=== PATIENT | female | born 1945 | race Caucasian/White ===

== ENCOUNTER 2019-10-16 07:39 | Emergency (ER) | payer BC, OTHER ==
--- NOTE | 2019-10-16 07:51 | PDOC ---
History of Present Illness - General Chief Complaint: Urinary Problem Stated Complaint: R/O UTI Time Seen by Provider: 10/16/19 07:49 History Source: Patient Exam Limitations: No Limitations Past History - Travel Traveled outside of the country in the last 30 days: No Close contact w/someone who was outside of country & ill: No - Past Medical History Allergies/Adverse Reactions: Allergies Allergy/AdvReac Type Severity Reaction Status Date / Time No Known Allergies Allergy Verified 10/16/19 07:51 Home Medications: Ambulatory Orders Amlodipine Besylate [Norvasc -] 10 mg PO DAILY 07/25/16 Sulfamethoxazole/Trimethoprim [Bactrim *Ds*] 1 each PO BID #10 tablet 07/25/16 Cephalexin Monohydrate [Keflex -] 500 mg PO BID #14 capsule 10/16/19 Phenazopyridine HCl [Pyridium -] 100 mg PO TID #9 tablet 10/16/19 HTN: Yes - Psycho Social/Smoking Cessation Hx Smoking History: Never smoked Review of Systems - Review of Systems Able to Perform ROS?: Yes Comments:: 10/16/19 07:50 CONSTITUTIONAL: Absent: fever, chills, diaphoresis, generalized weakness, malaise, loss of appetite HEENT: Absent: rhinorrhea, nasal congestion, throat pain, throat swelling, difficulty swallowing, mouth swelling, ear pain, eye pain, visual Changes CARDIOVASCULAR: Absent: chest pain, loss of consciousness, palpitations, irregular heart rate, peripheral edema RESPIRATORY: Absent: cough, shortness of breath, dyspnea with exertion, orthopnea, wheezing, stridor, hemoptysis GASTROINTESTINAL: Present: abdominal pain, nausea Absent: abdominal distension, nausea, vomiting, diarrhea, constipation, melena, hematochezia GENITOURINARY: Present: frequency, urgency Absent: dysuria, hesitancy, hematuria, flank pain, genital pain MUSCULOSKELETAL: Absent: myalgia, arthralgia, joint swelling SKIN: Absent: rash, itching, pallor NEUROLOGIC: Absent: headache, focal weakness or paresthesias, dizziness, unsteady gait, seizure, mental status changes, bladder or bowel incontinence PSYCHIATRIC: Absent: anxiety, depression, suicidal or homicidal ideation, hallucinations. Is the patient limited [place]an proficient: No *Physical Exam - Physical Exam 10/16/19 07:51 GENERAL: Well developed, well nourished. Awake and alert. No acute distress. HEENT: Normocephalic, atraumatic. PERRLA, EOMI. No conjunctival pallor. Sclera are non- icteric. Moist mucous membranes. Oropharynx is clear. NECK: Supple. Full ROM. No JVD. Carotid pulses 2+ and symmetric, without bruits. No thyromegaly. No lymphadenopathy. CARDIOVASCULAR: Regular rate and rhythm. No murmurs, rubs, or gallops. Distal pulses are 2+ and symmetric. PULMONARY: No evidence of respiratory distress. Lungs clear to auscultation bilaterally. No wheezing, rales or rhonchi. ABDOMINAL: TTP of the suprapubic region/RLQSoft. Non-distended. No rebound or guarding. No organomegaly. Normoactive bowel sounds. MUSCULOSKELETAL Normal range of motion at all joints. No bony deformities or tenderness. No CVA tenderness. EXTREMITIES: No cyanosis. No clubbing. No edema. No calf tenderness. SKIN: Warm and dry. Normal capillary refill. No rashes. No jaundice. NEUROLOGICAL: Alert, awake, appropriate. Cranial nerves 2-12 intact. No deficits to light touch and temperature in face, upper extremities and lower extremities. No motor deficits in the in face, upper extremities and lower extremities. Normoreflexic in the upper and lower extremities. Normal speech. Toes are down- going bilaterally. Gait is normal without ataxia. PSYCHIATRIC: Cooperative. Good eye contact. Appropriate mood and affect. ED Treatment Course - LABORATORY CBC & Chemistry Diagram: 10/16/19 08:17 10/16/19 08:17 Medical Decision Making - Medical Decision Making 10/16/19 07:58 The patient is a 74-year-old female with past medical history of a prolapsed bladder, HTN who presents to the ER for abdominal pain, frequency, urgency starting this morning. She states that the pain is sharp and stabbing and she notes that the pain is over her bladder. Taking Aleve just prior to arrival with no relief of her symptoms. She states that this feels like her previous UTIs however the pain is worse. She does admit to some associated nausea. Denies fevers, chills, vomiting, back pain, hematuria. Pt reports she just finished a Z-pack for upper respiratory like symptoms. A/P: Urinary symptoms. On exam patient with suprapubic tenderness as well as right lower quadrant tenderness. Likely urinary infection given most of the pain is over the suprapubic region, however given that patient does have some right lower quadrant tenderness will obtain basic labs. Urine, CBC, CMP, IV fluids, Zofran and IV Tylenol ordered Reevaluate 10/16/19 11:34 Trace blood was noted on the UA, otherwise the UA was unremarkable. Patient sent to CT renal to rule out stones. CT scan as read by radiology notes of a large left renal cyst with mild to moderate hydronephrosis on both sides. Multiple lesions noted within the base of the lungs consistent with potential metastatic cancer. Patient was made is aware of her results and aware that she needs to follow up this week. Copy of the report was given to her. Spoke with patient's primary care doctor Dr. Almendarez. Made aware of results and patient CT report was faxed over to Dr. Almendarez with patient permission. Likely patient has cystitis. Will treat as an outpatient with Keflex and Pyridium DC home I discussed the physical exam findings, ancillary test results and final diagnoses with the patient. I answered all of the patient's questions. The patient was satisfied with the care received and felt comfortable with the discharge plan and treatment plan. The Patient agrees to follow up with the primary care physician/specialist within 24-72 hours. Return precautions were given. Discharge - Discharge Information Problems reviewed: Yes Clinical Impression/Diagnosis: Urinary tract infection Qualifiers: Urinary tract infection type: acute cystitis Hematuria presence: with hematuria Qualified Code(s): N30.01 - Acute cystitis with hematuria Condition: Stable Disposition: HOME - Admission No - Additional Discharge Information Prescriptions: Cephalexin Monohydrate [Keflex -] 500 mg PO BID #14 capsule Phenazopyridine HCl [Pyridium -] 100 mg PO TID #9 tablet - Follow up/Referral Referrals: Isauro Almendarez MD [Primary Care Provider] - Call tomorrow Amandeep Gonzalez MD [Staff Physician] - Call tomorrow - Patient Discharge Instructions Patient Printed Discharge Instructions: DI for Urinary Tract Infection (UTI) Additional Instructions: You were evaluated for your urinary symptoms today. You most likely have a urinary tract infection which is causing the symptoms. Please take the Keflex as directed for 1 week. Please take the Pyridium 3 times a day with meals to help with the pain. You also have a cyst on your left kidney. Please follow-up with urology. A referral has been provided for you. As discussed there were lesions on your lungs which may be cancerous. You need to follow-up with your primary care doctor this week. He is expecting a phone call from you. Return to the ER for worsening pain, fever, inability to urinate, or if you have any changes in your symptoms. - Post Discharge Activity
[2019-10-16 07:52] VITALS: BP 143/90; PULSE 93; TEMP 98.1; BMI 28.9
[2019-10-16] MEDS ORDERED: SODIUM CHLORIDE 1,000 ML IV STA (07:56)
[2019-10-16] MEDS ORDERED: ACETAMINOPHEN 1000 MG/100 ML VIAL (NON FORMULARY) IVPB ONE (07:56)
[2019-10-16] MEDS ORDERED: ONDANSETRON 4 MG/2 ML VIAL IVPUSH ONE (07:56)
[2019-10-16] MEDS ORDERED: ACETAMINOPHEN INJECTION 100 ML IVPB ONE (08:06)
[2019-10-16] MEDS ORDERED: ONDANSETRON 4 MG/2 ML VIAL ONE (08:06)
[2019-10-16 08:30] LABS: BASO % 0.7 % (0-2.0); EOS % 1.2 % (0-4.5); HEMOGLOBIN 15.2 GM/dL (10.7-15.3); LYMPH % 11.8 % (8-40); MCH 30.7 pg (25.7-33.7); MCHC 34.5 g/dl (32.0-36.0); MEAN CELL VOLUME 88.9 fl (80-96); MEAN PLT VOLUME 8.1 fl (7.5-11.1); MONO % 6.8 % (3.8-10.2); NEUT % 79.5 % (42.8-82.8); PLATELET COUNT 247 K/MM3 (134-434); RBC 4.95 M/mm3 (3.60-5.2); RDW 13.1 % (11.6-15.6); WHITE BLOOD COUNT 9.8 K/mm3 (4.0-10.0)
[2019-10-16 08:58] LABS: ALBUMIN 4.1 g/dl (3.4-5.0); BILIRUBIN,TOTAL 0.5 mg/dL (0.2-1); BLOOD UREA NITROGEN 13.2 mg/dL (7-18); CALCIUM 10.1 mg/dL (8.5-10.1); CREATININE 0.7 mg/dL (0.55-1.3); POTASSIUM 3.9 mmol/L (3.5-5.1); TOT PROT 7.4 g/dl (6.4-8.2)
[2019-10-16] MEDS ORDERED: PHENAZOPYRIDINE HCL 100 MG TABLET (FP) PO ONE (09:05)
[2019-10-16 09:17] LABS: EPI CELLS 0.6 /HPF (0-5/HPF); HYALINE CASTS 0 /lpf (0-8); URINE APPEARANCE CLEAR; URINE BACTERIA 10.3 /hpf (NEGATIVE); URINE BILIRUBIN NEGATIVE (NEGATIVE); URINE COLOR YELLOW; URINE GLUCOSE (UA) NEGATIVE (NEGATIVE); URINE KETONE NEGATIVE (NEGATIVE); URINE LEUK ESTERASE NEGATIVE (NEGATIVE); URINE NITRITE NEGATIVE (NEGATIVE); URINE PROTEIN NEGATIVE (NEGATIVE); URINE RBC 12 /hpf (0-4); URINE UROBILINOGEN 0.2 mg/dL (0.2-1.0); URINE WBC 1 /hpf (0-5)
[2019-10-16] MEDS ORDERED: PHENAZOPYRIDINE HCL 100 MG TABLET (FP) ONE (09:23)
== END 2019-10-16 11:38 | disposition home or self-care (01) ==
LOC: JER 07:39
PROC: 3E033GC Introduction of Other Therapeutic Substance into Peripheral Vein, Percutaneous Approach (ICD-10-PCS; principal; 2019-10-16)
PROC: 3E033NZ Introduction of Analgesics, Hypnotics, Sedatives into Peripheral Vein, Percutaneous Approach (ICD-10-PCS; 2019-10-16)
DX: N30.01 Acute cystitis with hematuria (principal); I10 Essential (primary) hypertension
CPT/HCPCS: 36415; 74176-TC; 80053; 81003; 85025; 87086; 96374; 96375; 99283-25; J0131; J7030

== ENCOUNTER 2022-04-05 10:39 | Emergency (ER) | payer OTHER ==
[2022-04-05 10:48] VITALS: TEMP 97.8; BMI 29.2
[2022-04-05] MEDS ORDERED: IBUPROFEN 400 MG TABLET (FP) PO ONE ×2 (11:12→11:30)
[2022-04-05] MEDS ORDERED: ACETAMINOPHEN 325 MG TABLET (FP) ONE (11:32)
[2022-04-05] MEDS ORDERED: ACETAMINOPHEN 500 MG TABLET (FP) PO ONE (11:33)
[2022-04-05] MEDS ORDERED: AMOX TR/POT CLAV 875MG/125MG TABLETS (FP) PO ONE (11:54)
[2022-04-05] MEDS ORDERED: AMOX TR/POT CLAV 875MG/125MG TABLETS (FP) ONE (12:02)
[2022-04-05 12:19] VITALS: BP 134/62; PULSE 98
== END 2022-04-05 12:31 | disposition home or self-care (01) ==
LOC: JER 10:39
DX: K08.89 Other specified disorders of teeth and supporting structures (principal)
CPT/HCPCS: 93005; 93010; 99283-25

== ENCOUNTER 2022-06-30 11:17 | Emergency (ER) | payer OTHER ==
[2022-06-30 11:19] VITALS: BP 160/77; PULSE 112; RESP 18; TEMP 98.1; BMI 29.2
[2022-06-30 13:20] LABS: URINE APPEARANCE HAZY; URINE BILIRUBIN NEGATIVE (NEGATIVE); URINE COLOR YELLOW; URINE GLUCOSE (UA) NEGATIVE (NEGATIVE)
[2022-06-30 13:21] LABS: PH,URINE 6.5 (5.0-8.0); URINE KETONE NEGATIVE (NEGATIVE); URINE LEUK ESTERASE 3+ (NEGATIVE); URINE NITRITE 1+ (NEGATIVE); URINE PROTEIN TRACE (NEGATIVE)
[2022-06-30 13:22] LABS: URINE BACTERIA FEW /uL (0-1359); URINE RBC FEW /uL (0-23.9); URINE WBC MODERATE /uL (0-25.8)
== END 2022-06-30 13:51 | disposition home or self-care (01) ==
LOC: JERFT 11:17
DX: N39.0 Urinary tract infection, site not specified (principal)
CPT/HCPCS: 81003; 87086; 99283-25

== ENCOUNTER 2023-01-19 08:05 | Emergency (ER) | payer OTHER ==
[2023-01-19 08:20] VITALS: BP 169/72; PULSE 92; RESP 18; TEMP 98.1; BMI 29.2
[2023-01-19] MEDS ORDERED: SULFAMETHOXAZOLE/TRIMETHOPRIM 800MG/160MG D.S. TABLET PO ONE (09:15)
[2023-01-19] MEDS ORDERED: CEPHALEXIN 250 MG/5 ML ORAL SUSPENSION PO ONE (09:15)
[2023-01-19] MEDS ORDERED: CEPHALEXIN MONOHYDRATE 500 MG CAPSULE (UD) ONE (09:25)
[2023-01-19] MEDS ORDERED: SULFAMETHOXAZOLE/TRIMETHOPRIM 800MG/160MG D.S. TABLET ONE (09:25)
== END 2023-01-19 11:54 | disposition home or self-care (01) ==
LOC: JER 08:05
DX: L03.011 Cellulitis of right finger (principal)
CPT/HCPCS: 99283-25

== ENCOUNTER 2023-03-22 10:00 | Emergency (ER) | payer OTHER ==
[2023-03-22 10:10] VITALS: BP 165/83; PULSE 92; RESP 18; TEMP 98; BMI 27.4
[2023-03-22] MEDS ORDERED: LIDOCAINE 5% TOPICAL PATCH TP ONE (11:04)
[2023-03-22] MEDS ORDERED: ACETAMINOPHEN 500 MG TABLET (FP) PO ONE (11:04)
[2023-03-22] MEDS ORDERED: LIDOCAINE 5% TOPICAL PATCH ONE (11:09)
[2023-03-22] MEDS ORDERED: ACETAMINOPHEN 500 MG TABLET (FP) ONE (11:10)
[2023-03-22] MEDS ORDERED: LIDOCAINE PATCH REMOVAL MC SCH (22:00)
== END 2023-03-22 14:18 | disposition home or self-care (01) ==
LOC: JER 10:00 → JERFT 10:00
DX: S09.93XA Unspecified injury of face, initial encounter (principal); M25.561 Pain in right knee; W01.0XXA Fall on same level from slipping, tripping and stumbling without subsequent striking against object, initial encounter
CPT/HCPCS: 70450-TC; 73562-TC-RT-FY; 99284-25

== ENCOUNTER 2023-04-24 09:36 | Emergency (ER) | payer OTHER ==
[2023-04-24 09:55] VITALS: RESP 18; BMI 28.0
[2023-04-24 11:17] LABS: POTASSIUM 4.1 mmol/L (3.5-5.1)
[2023-04-24 11:19] LABS: ALBUMIN 3.8 g/dl (3.4-5.0); BLOOD UREA NITROGEN 16.3 mg/dL (7-18); CALCIUM 9.8 mg/dL (8.5-10.1)
[2023-04-24 11:22] LABS: BASO % 0.7 % (0-2.0); CREATININE 0.8 mg/dL (0.55-1.3); EOS % 0.5 % (0-4.5); HEMATOCRIT 41.3 % (32.4-45.2); HEMOGLOBIN 13.5 GM/dL (10.7-15.3); LYMPH % 14.5 % (8-40); MCHC 32.7 g/dl (32.0-36.0); MEAN CELL VOLUME 91.6 fl (80-96); MEAN PLT VOLUME 8.9 fl (7.5-11.1); MONO % 8.1 % (3.8-10.2); NEUT % 76.2 % (42.8-82.8); PLATELET COUNT 249 10^3/uL (134-434); RBC 4.51 M/mm3 (3.60-5.2); RDW 13.4 % (11.6-15.6); WHITE BLOOD COUNT 11.3 K/mm3 (4.0-10.0)
[2023-04-24 11:24] LABS: BILIRUBIN,TOTAL 0.5 mg/dL (0.2-1); TOT PROT 7.3 g/dl (6.4-8.2)
[2023-04-24 11:41] LABS: ERYTHROCYTE SEDIMENTATION RATE 83 mm/hr (0-30)
[2023-04-24] MEDS ORDERED: AMPICILLIN NA/SULBACTAM NA 1.5 GM in SODIUM CHLORIDE 100 ML IVPB ONE ×2 (14:09→14:20)
[2023-04-24] MEDS ORDERED: VANCOMYCIN 1 GM in D5W (PRE-DOCKED) 1,000 MG/250 ML (RESTRICTED TO ID ONLY IVPB ONE (14:20)
[2023-04-24] MEDS ORDERED: KETOROLAC TROMETHAMINE 15 MG/ML VIAL IVPUSH ONE (14:21)
[2023-04-24] MEDS ORDERED: AMPICILLIN NA/SULBACTAM NA 1.5 GM VIAL ONE (15:10)
[2023-04-24] MEDS ORDERED: KETOROLAC TROMETHAMINE 15 MG/ML VIAL ONE (15:10)
[2023-04-24] MEDS ORDERED: VANCOMYCIN/WATER FOR INJ (PEG) 1,000 MG/200 ML BAG IVPB ONE (15:10)
[2023-04-24] MEDS ORDERED: SODIUM CHLORIDE 0.9% 500 ML INFUS.BAG IV ONE (15:58)
[2023-04-24 19:57] VITALS: BP 140/70; PULSE 76; TEMP 98.6
== END 2023-04-24 21:25 | disposition short-term general hospital (02) ==
LOC: JER 09:36 → JERFT 09:36 → JER 21:25
PROC: 3E03329 Introduction of Other Anti-infective into Peripheral Vein, Percutaneous Approach (ICD-10-PCS; principal; 2023-04-24)
PROC: 3E0333Z Introduction of Anti-inflammatory into Peripheral Vein, Percutaneous Approach (ICD-10-PCS; 2023-04-24)
PROC: 3E03329 Introduction of Other Anti-infective into Peripheral Vein, Percutaneous Approach (ICD-10-PCS; 2023-04-24)
DX: L03.211 Cellulitis of face (principal); L02.01 Cutaneous abscess of face; R22.0 Localized swelling, mass and lump, head
CPT/HCPCS: 36415; 70487-TC; 80053; 85025; 85651; 86140; 87635; 99285-25; Q9967

== ENCOUNTER 2024-03-28 00:36 | Emergency (ER) | payer OTHER ==
[2024-03-28 00:48] VITALS: BMI 28.9
[2024-03-28] MEDS ORDERED: fentaNYL CITRATE 250 MCG/5 ML VIAL ONE (01:00)
[2024-03-28] MEDS ORDERED: ONDANSETRON 4 MG/2 ML VIAL ONE (01:10)
[2024-03-28] MEDS: ONDANSETRON 4 MG/2 ML VIAL IVPB ONE (01:16)
[2024-03-28] MEDS ORDERED: FENTANYL CITRATE/PF 50 MCG/ML VIAL ONE (01:49)
[2024-03-28 01:50] LABS: BASO % 0.3 % (0-2.0); EOS % 0.4 % (0-4.5); HEMATOCRIT 37.5 % (32.4-45.2); HEMOGLOBIN 12.8 GM/dL (10.7-15.3); LYMPH % 6.4 % (8-40); MCH 30.1 pg (25.7-33.7); MCHC 34.1 g/dl (32.0-36.0); MEAN PLT VOLUME 7.6 fl (7.5-11.1); MONO % 3.6 % (3.8-10.2); NEUT % 89.3 % (42.8-82.8); PLATELET COUNT 211 10^3/uL (134-434); RBC 4.26 M/mm3 (3.60-5.2); RDW 14.4 % (11.6-15.6); WHITE BLOOD COUNT 12.8 K/mm3 (4.0-10.0)
[2024-03-28 01:58] LABS: INR 1.02 (0.83-1.09); PROTHROMBIN TIME (PATIENT) 11.5 SEC (9.7-13.0)
[2024-03-28 02:01] LABS: ACTIVATED PTT 27.6 SECONDS (25.2-36.5)
[2024-03-28 02:10] LABS: CALCIUM 8.5 mg/dL (8.5-10.1)
[2024-03-28 02:11] LABS: ALBUMIN 3.2 g/dl (3.4-5.0)
[2024-03-28 02:14] LABS: CREATININE 0.7 mg/dL (0.55-1.3)
[2024-03-28 02:15] LABS: BILIRUBIN,TOTAL 0.3 mg/dL (0.2-1)
[2024-03-28 02:16] LABS: TOT PROT 6.4 g/dl (6.4-8.2)
[2024-03-28] MEDS ORDERED: KETOROLAC TROMETHAMINE 15 MG/ML VIAL ONE (02:17)
[2024-03-28] MEDS: POLYETHYLENE GLYCOL (HEALTHYLAX) 3350 17 GM PACKET PO SCH (02:21)
[2024-03-28] MEDS: KETOROLAC TROMETHAMINE 15 MG/ML VIAL IVPUSH ONE (02:21)
[2024-03-28] MEDS: Methylnaltrexone Bromide 12 MG/0.6 ML KIT SQ ONE (03:23)
[2024-03-28] MEDS: POLYETHYLENE GLYCOL (HEALTHYLAX) 3350 17 GM PACKET PO ONE (03:23)
[2024-03-28] MEDS: ONDANSETRON 4 MG/2 ML VIAL IVPUSH ONE (03:23)
[2024-03-28 05:27] VITALS: BP 128/76; PULSE 85; RESP 16; TEMP 97.8
== END 2024-03-28 05:27 | disposition left against medical advice (07) ==
LOC: JER 00:36
PROC: 3E033NZ Introduction of Analgesics, Hypnotics, Sedatives into Peripheral Vein, Percutaneous Approach (ICD-10-PCS; principal; 2024-03-28)
PROC: 3E033GC Introduction of Other Therapeutic Substance into Peripheral Vein, Percutaneous Approach (ICD-10-PCS; 2024-03-28)
PROC: 3E033GC Introduction of Other Therapeutic Substance into Peripheral Vein, Percutaneous Approach (ICD-10-PCS; 2024-03-28)
PROC: 3E033GC Introduction of Other Therapeutic Substance into Peripheral Vein, Percutaneous Approach (ICD-10-PCS; 2024-03-28)
PROC: 3E013VG Introduction of Insulin into Subcutaneous Tissue, Percutaneous Approach (ICD-10-PCS; 2024-03-28)
DX: K62.3 Rectal prolapse (principal); N13.30 Unspecified hydronephrosis; K62.89 Other specified diseases of anus and rectum
CPT/HCPCS: 36415; 74174-TC; 80053; 83605; 85025; 85610; 85730; 96372; 96374; 96375; 96376; 99284-25; Q9967

== ENCOUNTER 2024-07-19 04:22 | Day surgery (SDC) | payer OTHER ==
[2024-07-18 14:07] VITALS: BMI 28.0
[~2024-07-19 04:22] MED LIST: ACETAMINOPHEN 325 MG TABLET (FP) PO PRN
[2024-07-19] MEDS ORDERED: EPINEPHrine/PF 1 MG/1 ML (1:1,000) AMPULE ONE (07:41)
[2024-07-19] MEDS ORDERED: LIDOCAINE HCL/PF 1% SDV 5ML VIAL ONE (07:41)
[2024-07-19] MEDS ORDERED: POVIDONE-IODINE 5% OPHTHALMIC PREP 30 ML SOLUTION ONE (07:42)
[2024-07-19] MEDS ORDERED: TRYPAN BLUE 0.5 ML DISP.SYRIN ONE (07:42)
[2024-07-19] MEDS ORDERED: KETOROLAC TROMETHAMINE 0.5% EYE DROP 1 DROP DROPS ONE (08:21)
[2024-07-19] MEDS ORDERED: CYCLOPENTOLATE HCL 1% OPHTH SOLN 2 ML BOTTLE ONE (08:21)
[2024-07-19] MEDS ORDERED: OFLOXACIN 0.3% OPHTHALMIC SOLUTION 5 ML BOTTLE ONE (08:21)
[2024-07-19] MEDS ORDERED: PHENYLEPHRINE 2.5% OPTHALMIC DROP 2ML BOTTLE ONE (08:21)
[2024-07-19] MEDS ORDERED: TROPICAMIDE 1% OPHTH SOLN 15 ML BOTTLE ONE (08:21)
[2024-07-19] MEDS: KETOROLAC TROMETHAMINE 0.5% EYE DROP 1 DROP DROPS OP SCH (08:26)
[2024-07-19] MEDS: CYCLOPENTOLATE HCL 1% OPHTH SOLN 2 ML BOTTLE OP SCH (08:26)
[2024-07-19] MEDS: PHENYLEPHRINE 2.5% OPHTH SOLN 15 ML BOTTLE OP SCH (08:27)
[2024-07-19] MEDS: TROPICAMIDE 1% OPHTH SOLN 15 ML BOTTLE OP SCH (08:27)
[2024-07-19] MEDS: OFLOXACIN 0.3% OPHTHALMIC SOLUTION 5 ML BOTTLE OP SCH (08:28)
[2024-07-19] MEDS ORDERED: MIDAZOLAM HCL 2 MG/2 ML SINGLE DOSE VIAL ONE (08:58)
[2024-07-19] MEDS: TETRACAINE 0.5% OPHTH SOLN 2 ML BOTTLE OS ONE (09:05)
[2024-07-19] MEDS: POVIDONE-IODINE 5% OPHTHALMIC PREP 30 ML SOLUTION OS ONE (09:08)
[2024-07-19] MEDS: LIDOCAINE HCL 1% PRESERVATIVE FREE - 30ML VIAL IO ONE (09:15)
[2024-07-19] MEDS: CHONDROITIN SU A/HYALUR SOD 1 KIT IO ONE (09:19)
[2024-07-19] MEDS: TRYPAN BLUE 0.5 ML DISP.SYRIN IO ONE (09:19)
[2024-07-19] MEDS: BSS (NA/CA/MG/K) BALANCED SALT SOLUTION OPHTH SOLN 15 ML BOTTLE OS ONE (09:20)
[2024-07-19] MEDS: EPINEPHrine 1:1,000 1,000 MCG/ML ML IVPB ONE (09:36)
[2024-07-19 12:21] VITALS: PULSE 81; TEMP 97.9
[2024-07-19 12:22] VITALS: BP 155/70; RESP 18
== END 2024-07-19 10:45 | disposition home or self-care (01) ==
LOC: JASU-SURG 04:22
PROVIDERS: ATTEND Ophthalmology
PROC: 08RK3JZ Replacement of Left Lens with Synthetic Substitute, Percutaneous Approach (ICD-10-PCS; principal; 2024-07-19 10:00)
DX: H25.89 Other age-related cataract (principal)
CPT/HCPCS: 66984; V2632